=== PATIENT | male | born 1980 | race Caucasian/White ===

== ENCOUNTER 2017-09-04 07:38 | Emergency (ER) | payer BC ==
[2017-09-04 07:45] VITALS: BP 151/88; PULSE 72; RESP 16; TEMP 97; O2SAT 100
--- NOTE | 2017-09-04 08:20 | ED PDOC ---
HPI: Eye Injury/Pain Time Seen by Provider: 09/04/17 07:43 Chief Complaint (Nursing): Eye Problem Chief Complaint (Provider): Eye pain History Per: Patient History/Exam Limitations: no limitations Onset/Duration Of Symptoms: Days (yesterday) Current Symptoms Are (Timing): Still Present Additional Complaint(s): Pt. baby poked his right eye. Has had pain to the right eye since. Able to see with no issues but pain. No numbness, tingles, facial pain. No headaches, neck pain. No cough. No fever. Past Medical History Reviewed: Historical Data, Nursing Documentation, Vital Signs Vital Signs: Last Vital Signs Temp 97.0 F L 09/04/17 07:41 Pulse 72 09/04/17 07:41 Resp 16 09/04/17 07:41 BP 151/88 H 09/04/17 07:41 Pulse Ox 100 09/04/17 07:41 - Medical History PMH: No Chronic Diseases - Surgical History Surgical History: No Surg Hx - Family History Family History: States: Unknown Family Hx - Living Arrangements Living Arrangements: With Family - Home Medications Home Medications: Ambulatory Orders Medication Instructions Recorded Ibuprofen [Motrin] 600 mg PO TID 7 Days tab 09/04/17 Polymyxin/Trimethoprim Sulfate 2 drop RIGHTEYE Q6H 7 Days bottle 09/04/17 [Polytrim Ophth Soln] - Allergies Allergies/Adverse Reactions: Allergies Allergy/AdvReac Type Severity Reaction Status Date / Time No Known Allergies Allergy Verified 09/04/17 07:41 Review of Systems Constitutional: Negative for: Fever, Weakness Eyes: Positive for: Pain. Negative for: Vision Change, Conjunctivae Inflammation, Eyelid Inflammation ENT: Negative for: Nose Pain, Nose Discharge, Nose Congestion, Mouth Pain Respiratory: Negative for: Cough, Shortness of Breath Musculoskeletal: Negative for: Neck Pain, Shoulder Pain, Arm Pain, Back Pain Skin: Negative for: Rash Neurological: Negative for: Weakness, Numbness, Headache Physical Exam - Reviewed Nursing Documentation Reviewed: Yes Vital Signs Reviewed: Yes - Physical Exam Appears: Positive for: Non-toxic, No Acute Distress Head Exam: Positive for: ATRAUMATIC, NORMAL INSPECTION, NORMOCEPHALIC Skin: Positive for: Normal Color, Warm, DRY Eye Exam: Positive for: EOMI, PERRL, Conjunctival injection, Other (R eye with conjunctival injection; no foreign body under upper or lower eye lid; fluorescein uptake central eye in patch pattern). Negative for: Periorbital swelling, Periorbital tenderness ENT: Positive for: Normal ENT Inspection. Negative for: Nasal Congestion Neck: Positive for: Normal, Painless ROM Cardiovascular/Chest: Positive for: Regular Rate, Rhythm Respiratory: Positive for: CNT, Normal Breath Sounds Back: Positive for: Normal Inspection Neurologic/Psych: Positive for: Alert, scientific photographer II-XII, Oriented. Negative for: Motor/Sensory Deficits - ECG O2 Sat by Pulse Oximetry: 100 Pulse Ox Interpretation: Normal - Progress ED Course And Treament: 823: Stable. AAOx3. Pain free. Vision poor in R per eye exam as pt. has injury and teary eye. Fu with eye doctor. Disposition - Clinical Impression Clinical Impression: Corneal abrasion - Patient ED Disposition Is Patient to be Admitted: No Counseled Patient/Family Regarding: Diagnosis, Need For Followup, Rx Given - Disposition Referrals: Clifton Toledo MD [Staff Provider] - 09/05/17 [facility] [Outside] - 09/05/17 Disposition: Routine/Home Disposition Time: 08:25 Condition: STABLE Additional Instructions: Return if not better in 3 days. Prescriptions: Ibuprofen [Motrin] 600 mg PO TID 7 Days tab Polymyxin/Trimethoprim Sulfate [Polytrim Ophth Soln] 2 drop RIGHTEYE Q6H 7 Days bottle Instructions: Corneal Abrasion (ED) Forms: [facility] (Indonesian), [facility] ED School/Work Excuse
== END 2017-09-04 08:45 | disposition home or self-care (01) ==
LOC: H.ER 07:38
DX: S05.01XA Injury of conjunctiva and corneal abrasion without foreign body, right eye, initial encounter (principal); W50.0XXA Accidental hit or strike by another person, initial encounter; Z23 Encounter for immunization

== ENCOUNTER 2018-01-22 16:58 | Emergency (ER) | payer BC ==
[2018-01-22 17:03] VITALS: BP 140/84; PULSE 73; RESP 20; TEMP 98.2; O2SAT 100
--- NOTE | 2018-01-22 17:22 | ED PDOC ---
HPI: Male Pain Time Seen by Provider: 01/22/18 17:15 Chief Complaint (Nursing): Male Genitourinary History Per: Patient Onset/Duration Of Symptoms: Hrs (2) Current Symptoms Are (Timing): Still Present Severity: Moderate Pain Scale Rating Of: 5 Quality Of Discomfort: Aching Associated Symptoms: denies: Urinary Symptoms Additional Complaint(s): Kicked in right testicle at 3 PM today, developed pain radiating to right flank 20 min later. Denies dysuria or hematuria. No NV Past Medical History Vital Signs: Last Vital Signs Temp 98.2 F 01/22/18 17:00 Pulse 73 01/22/18 17:00 Resp 20 01/22/18 17:00 BP 140/84 01/22/18 17:00 Pulse Ox 100 01/22/18 17:00 - Medical History PMH: No Chronic Diseases - Family History Family History: States: Unknown Family Hx - Home Medications Home Medications: Ambulatory Orders Medication Instructions Recorded Ibuprofen [Motrin] 600 mg PO TID 7 Days tab 09/04/17 Polymyxin/Trimethoprim Sulfate 2 drop RIGHTEYE Q6H 7 Days bottle 09/04/17 [Polytrim Ophth Soln] traMADol [Ultram] 50 mg PO Q8 #10 tab 01/22/18 - Allergies Allergies/Adverse Reactions: Allergies Allergy/AdvReac Type Severity Reaction Status Date / Time No Known Allergies Allergy Verified 01/22/18 16:59 Review of Systems Constitutional: Negative for: Fever Gastrointestinal: Positive for: Abdominal Pain Genitourinary Male: Positive for: Other (testicular pain). Negative for: Hematuria Physical Exam - Physical Exam Appears: Positive for: Non-toxic, Uncomfortable Skin: Positive for: Normal Color, Warm, DRY Gastrointestinal/Abdominal: Positive for: Bowel Sounds, Soft. Negative for: Tenderness Male Genital Exam: Positive for: normal genitalia, testicular tenderness (R). Negative for: bleeding, hernia mass Back: Negative for: L CVA Tenderness, R CVA Tenderness - ECG O2 Sat by Pulse Oximetry: 100 Disposition - Clinical Impression Clinical Impression: Contusion of testicle - Patient ED Disposition Is Patient to be Admitted: No Counseled Patient/Family Regarding: Studies Performed, Diagnosis, Need For Followup, Rx Given - Disposition Referrals: Cameron Ni MD [Medical Doctor] - Disposition: Routine/Home Disposition Time: 19:28 Condition: FAIR Prescriptions: traMADol [Ultram] 50 mg PO Q8 #10 tab Instructions: Contusion (DC) Forms: [facility] (Sami) Print Language: BURUNDIAN
--- NOTE | 2018-01-22 18:13 | US ---
HISTORY: trauma TECHNIQUE: Realtime sonography through the scrotum with color and doppler flow. COMPARISON: None Available. FINDINGS: RIGHT TESTICLE: Measures 2.1 x 3 x 4.2 cm. Normal echotexture and flow. RIGHT EPIDIDYMIS: Epididymal head measures 1.1 x 1.3 cm. Grossly unremarkable appearance with normal flow. LEFT TESTICLE: Measures 1.8 x 3.1 x 4.1 cm. Normal echotexture and flow. LEFT EPIDIDYMIS: Epididymal head measures 0.9 x 1.2 cm. Grossly unremarkable appearance with normal flow. HYDROCELE: Small and bilateral. VARICOCELE: None. OTHER FINDINGS: Debris laden Cyst interposed between the posterior wall of the scrotum and PA and right testicle measuring 3 x 5 x 6 mm. Focal calcification adjacent to the left testicle measuring 2.4 x 1.8 mm. Scrotal edema bilaterally left greater than right. IMPRESSION: Negative study for epididymitis, orchitis or torsion. Additional benign and/or incidental findings described above.
[2018-01-22 20:12] LABS: SQUAMOUS EPITHIAL < 1 /hpf (0-5); URINE BILIRUBIN NEGATIVE (NEGATIVE); URINE BLOOD LARGE (NEGATIVE); URINE CLARITY CLOUDY (Clear); URINE COLOR AMBER (YELLOW); URINE GLUCOSE (UA) NEG (Normal); URINE HYALINE CAST 0-2 /hpf (0-2); URINE LEUKOCYTE ESTERASE NEG Leu/uL (Negative); URINE PROTEIN 100 mg/dL (NEGATIVE)
== END 2018-01-22 20:15 | disposition home or self-care (01) ==
LOC: H.ER 16:58
DX: S30.22XA Contusion of scrotum and testes, initial encounter (principal); Y04.0XXA Assault by unarmed brawl or fight, initial encounter; Y92.89 Other specified places as the place of occurrence of the external cause
CPT/HCPCS: 81003; 93975; 96372; 99283; J1885

== ENCOUNTER 2018-01-22 20:41 | Emergency (ER) | payer BC ==
[2018-01-22 20:45] VITALS: BP 162/81; PULSE 63; RESP 18; TEMP 98; O2SAT 99
[2018-01-22] MEDS ORDERED: Sodium Chloride 0.9% 1,000 ML IV STA (20:51)
--- NOTE | 2018-01-22 20:53 | ED PDOC ---
HPI: Male Pain Time Seen by Provider: 01/22/18 20:49 Chief Complaint (Nursing): Male Genitourinary History Per: Patient Current Symptoms Are (Timing): Still Present Severity: Moderate Quality Of Discomfort: Aching Associated Symptoms: denies: Nausea Additional Complaint(s): Seen earlier with traumatic pain to testicle. Return now with right flank pain. No NVD. No dysuria Past Medical History Vital Signs: Last Vital Signs Temp 98.0 F 01/22/18 20:43 Pulse 63 01/22/18 20:43 Resp 18 01/22/18 20:43 BP 162/81 H 01/22/18 20:43 Pulse Ox 99 01/22/18 20:43 - Medical History PMH: No Chronic Diseases - Family History Family History: States: Unknown Family Hx - Home Medications Home Medications: Ambulatory Orders Medication Instructions Recorded Ibuprofen [Motrin] 600 mg PO TID 7 Days tab 09/04/17 Polymyxin/Trimethoprim Sulfate 2 drop RIGHTEYE Q6H 7 Days bottle 09/04/17 [Polytrim Ophth Soln] Sulfamethoxazole/Trimethoprim 1 tab PO BID #20 tab 01/22/18 [Bactrim DS 800 mg-160 mg] Sulfamethoxazole/Trimethoprim 1 tab PO BID #20 tab 01/22/18 [Bactrim DS 800 mg-160 mg] Tamsulosin [Flomax] 0.4 mg PO DAILY #5 cap 01/22/18 traMADol [Ultram] 50 mg PO Q8 #10 tab 01/22/18 traMADol [Ultram] 50 mg PO Q8 #10 tab 01/22/18 - Allergies Allergies/Adverse Reactions: Allergies Allergy/AdvReac Type Severity Reaction Status Date / Time No Known Allergies Allergy Verified 01/22/18 20:43 Review of Systems Constitutional: Negative for: Fever Gastrointestinal: Positive for: Abdominal Pain. Negative for: Nausea, Vomiting Genitourinary Male: Negative for: Dysuria, Frequency Physical Exam - Physical Exam Appears: Positive for: Non-toxic, No Acute Distress Skin: Positive for: Normal Color, Warm, DRY Gastrointestinal/Abdominal: Positive for: Bowel Sounds, Soft. Negative for: Tenderness Back: Negative for: L CVA Tenderness, R CVA Tenderness - ECG O2 Sat by Pulse Oximetry: 99 - Progress Re-evaluation Time: 22:00 Condition: Improved Disposition - Clinical Impression Clinical Impression: Kidney stone - Patient ED Disposition Is Patient to be Admitted: No Counseled Patient/Family Regarding: Studies Performed, Diagnosis, Need For Followup, Rx Given - Disposition Referrals: Cameron Ni MD [Medical Doctor] - Disposition: Routine/Home Disposition Time: 22:01 Condition: FAIR Prescriptions: Sulfamethoxazole/Trimethoprim [Bactrim DS 800 mg-160 mg] 1 tab PO BID #20 tab Tamsulosin [Flomax] 0.4 mg PO DAILY #5 cap traMADol [Ultram] 50 mg PO Q8 #10 tab Instructions: Kidney Stones in Adults Forms: [facility] (Palauan) Print Language: ALBANIAN
--- NOTE | 2018-01-23 10:55 | CT ---
PROCEDURE: CT Abdomen and Pelvis with Oral contrast. HISTORY: Rule out kidney stone COMPARISON: None. TECHNIQUE: Contiguous axial images of the abdomen and pelvis. Additional 2D sagittal and coronal reformats generated. Radiation dose: Total exam DLP = 475.54 mGy-cm. This CT exam was performed using one or more of the following dose reduction techniques: Automated exposure control, adjustment of the mA and/or kV according to patient size, and/or use of iterative reconstruction technique. FINDINGS: LOWER THORAX: Heart size is upper limits of normal. No significant pericardial effusion. There is a small hiatal hernia. Lung bases are clear. Some minor scarring seen in the lingular and middle lobe regions. LIVER: Unremarkable. No gross lesion or ductal dilatation. GALLBLADDER AND BILE DUCTS: Unremarkable. PANCREAS: Unremarkable. No mass. No ductal dilatation. SPLEEN: Unremarkable. No splenomegaly. ADRENALS: Unremarkable. KIDNEYS AND URETERS: Right-sided hydronephrosis secondary to a 5 mm calculus right proximal/mid ureter region. Punctate calcification also seen in the midpole right kidney disease the the the BLADDER: Grossly unremarkable. REPRODUCTIVE: Unremarkable. APPENDIX: Normal-appearing appendix BOWEL: Unremarkable. No obstruction. No gross mural thickening. PERITONEUM: Unremarkable. No fluid collection. No free air. LYMPH NODES: There are multiple small nonspecific mesenteric lymph nodes of uncertain etiology though could be reactive. VASCULATURE: Unremarkable. No aortic aneurysm. BONES: No fracture or destructive lesion. OTHER FINDINGS: None. IMPRESSION: There is a 5 mm obstructing calculus the proximal/ mid right ureter with mild right-sided hydronephrosis. Punctate calcification upper/ midpole right kidney. Scattered multiple small nonspecific mesenteric lymph nodes are present possibly reactive. Rule out mesenteric adenitis.
== END 2018-01-22 22:13 | disposition home or self-care (01) ==
LOC: H.ER 20:41
DX: N13.2 Hydronephrosis with renal and ureteral calculous obstruction (principal)
CPT/HCPCS: 74176; 96374; 99284; J2270; J7030

== ENCOUNTER 2018-09-22 05:23 | Emergency (ER) | payer SELFPAY ==
[2018-09-22 05:46] VITALS: BMI 25.0
[2018-09-22] MEDS ORDERED: Sodium Chloride 0.9% 1,000 ML IV STA (05:47)
[2018-09-22 06:15] LABS: BASO # 0.1 K/uL (0.0-0.2); BASO % 0.6 % (0.0-2.0); EOS % 0.2 % (0.0-4.0); HEMOGLOBIN 15.9 g/dL (12.0-18.0); LYMPH # 1.9 K/uL (1.0-4.3); LYMPH % 11.8 % (20.0-40.0); MEAN CELL VOLUME 96.5 fl (80.0-94.0); MEAN CORPUSCULAR HEMOGLOBIN 32.8 pg (27.0-31.0); MEAN PLATELET VOLUME 9.1 fl (7.2-11.7); MONO # 0.9 K/uL (0.0-0.8); MONO % 5.9 % (0.0-10.0); NEUT % 81.5 % (50.0-75.0); RBC 4.84 Mil/uL (4.40-5.90); RED CELL DISTRIBUTION WIDTH 13.6 % (11.5-14.5); WHITE BLOOD COUNT 15.9 K/uL (4.8-10.8)
--- NOTE | 2018-09-22 06:15 | ED PDOC ---
HPI: Abdomen Time Seen by Provider: 09/22/18 05:30 Chief Complaint (Nursing): Abdominal Pain Chief Complaint (Provider): Abdominal Pain History Per: Patient History/Exam Limitations: no limitations Quality Of Discomfort: "Pain" Associated Symptoms: Nausea, Vomiting Additional Complaint(s): 38 year old male with no significant medical history presents to the ED for eval uation of acute left sided abdominal pain radiating to left testicle and flank. Patient also developed nausea and vomiting about 1 hour prior to arrival. He denies fever, diarrhea and other complaints. PMD: none provided Past Medical History Reviewed: Historical Data, Nursing Documentation, Vital Signs Vital Signs: Last Vital Signs Temp 97.7 F 09/22/18 05:42 Pulse 67 09/22/18 05:42 Resp 16 09/22/18 05:42 BP 153/98 H 09/22/18 05:42 Pulse Ox 100 09/22/18 05:42 - Medical History PMH: No Chronic Diseases - Surgical History Surgical History: No Surg Hx - Family History Family History: States: Unknown Family Hx - Home Medications Home Medications: Ambulatory Orders Medication Instructions Recorded Famotidine [Pepcid] 20 mg PO BID #28 tab 09/22/18 - Allergies Allergies/Adverse Reactions: Allergies Allergy/AdvReac Type Severity Reaction Status Date / Time No Known Allergies Allergy Verified 01/22/18 20:43 Review of Systems ROS Statement: Except As Marked, All Systems Reviewed And Found Negative Constitutional: Negative for: Fever, Chills Cardiovascular: Negative for: Chest Pain Gastrointestinal: Positive for: Abdominal Pain, Diarrhea Physical Exam - Physical Exam Appears: Positive for: Uncomfortable Head Exam: Positive for: ATRAUMATIC, NORMAL INSPECTION, NORMOCEPHALIC Skin: Positive for: Normal Color, Warm, Dry Eye Exam: Positive for: EOMI, Normal appearance, PERRL Neck: Positive for: Normal, Painless ROM, Supple Cardiovascular/Chest: Positive for: Regular Rate, Rhythm. Negative for: Murmur Respiratory: Positive for: Normal Breath Sounds. Negative for: Respiratory Distress Gastrointestinal/Abdominal: Positive for: Normal Exam, Soft. Negative for: Tend erness Back: Positive for: L CVA Tenderness. Negative for: R CVA Tenderness Extremity: Positive for: Normal ROM. Negative for: Deformity Neurologic/Psych: Positive for: Alert, Oriented. Negative for: Motor/Sensory Deficits - Laboratory Results Result Diagrams: 09/22/18 06:00 09/22/18 06:00 - ECG O2 Sat by Pulse Oximetry: 100 (RA) Pulse Ox Interpretation: Normal Medical Decision Making Medical Decision Makin:47 Impression: 38 year old male with abdominal pain Initial Plan: --CT Abd & pelvis --CMP --CBC --Lipase --Urine dip --Morphine 4 mg IV --NS IV --Pepcid 20 mg IVP --Toradol 30 mg IM --Zofran 4 mg IV --UA 07:00 Patient will be signed out to Dr. Pyle pending full ER workup and disposition. --- Scribe Attestation: Documented by Jill Orr acting as a scribe for Manuel Carrillo MD Provider Scribe Attestation: All medical record entries made by the Scribe were at my direction and personally dictated by me. I have reviewed the chart and agree that the record accurately reflects my personal performance of the history, physical exam, medical decision making, and the department course for this patient. I have also personally directed, reviewed, and agree with the discharge instructions and disposition. Disposition - Clinical Impression Clinical Impression: Gastritis - Patient ED Disposition Is Patient to be Admitted: Transfer of Care - Disposition Referrals: [email or web address] [Outside] [facility] [Outside] [facility] [Outside] Disposition: Transfer of Care Disposition Time: 07:00 Condition: FAIR Prescriptions: Famotidine [Pepcid] 20 mg PO BID #28 tab Instructions: Gastritis Forms: [email or web address] (Moldovan), [facility] ED School/Work Excuse Print Language: TURKMEN Patient Signed Over To: Elly Pyle
[2018-09-22] MEDS ORDERED: Morphine 5 MG/ML SYRINGE IVP ONE (06:19)
[2018-09-22] MEDS ORDERED: Morphine 4 MG/ML VIAL ONE (06:22)
[2018-09-22 06:23] LABS: ALB/GLOB RATIO 1.4 (1.0-2.1); ALBUMIN 4.7 g/dL (3.5-5.0); ALT/SGPT 26 U/L (21-72); AST/SGOT 27 U/L (17-59); BLOOD UREA NITROGEN 14 mg/dl (9-20); CALCIUM 9.9 mg/dL (8.4-10.2); GFR NON-AFRICAN AMERICAN > 60; LIPASE 319 U/L (23-300)
--- NOTE | 2018-09-22 07:25 | ED PDOC ---
- Laboratory Results Result Diagrams: 09/22/18 06:00 09/22/18 06:00 Lab Results: Total Bilirubin 0.6 mg/dl (0.2-1.3) 09/22/18 06:00 AST 27 U/L (17-59) 09/22/18 06:00 ALT 26 U/L (21-72) 09/22/18 06:00 Alkaline Phosphatase 79 U/L (38-126) 09/22/18 06:00 Total Protein 8.1 G/DL (6.3-8.2) 09/22/18 06:00 Albumin 4.7 g/dL (3.5-5.0) 09/22/18 06:00 Globulin 3.4 gm/dL (2.2-3.9) 09/22/18 06:00 Albumin/Globulin Ratio 1.4 (1.0-2.1) 09/22/18 06:00 Lipase 319 U/L (23-300) H 09/22/18 06:00 - ECG O2 Sat by Pulse Oximetry: 100 (RA) Pulse Ox Interpretation: Normal Medical Decision Making Medical Decision Makin:[address] Pyle from Dr. Carrillo pending CT scan, ED workup and disposition. 07:30 CT SCAN OF THE ABDOMEN AND PELVIS WITHOUT ORAL OR IV CONTRAST. CLINICAL INDICATION: Left flank pain. TECHNIQUE: Axial and reformatted sagittal and coronal images of the abdomen pelvis obtained without IV contrast administration. COMPARISON: 01/22/2018. FINDINGS: The visualized lung bases are unremarkable. Normal unenhanced liver. Normal gallbladder and extrahepatic biliary system. Normal unenhanced spleen. Normal pancreas. Normal bilateral adrenal glands. Normal size of the right kidney. There is no right renal mass. There are no right renal calculi. There is no right hydronephrosis. Normal visualized right ureter. Normal size of the left kidney. There is no left renal mass. 3 mm left renal nonobstructing stone. There is no left hydronephrosis. Normal visualized left ureter. Normal visualized stomach. Normal small intestine. Uncomplicated diverticulosis of the colon. Mild amount of fecal residue in the large bowels. The appendix is visualized and appears normal. There is no demonstrated peritoneal fluid. Normal abdominal aorta. Normal inferior vena cava. Normal retroperitoneum. Normal urinary bladder. There is no pelvic mass lesion or lymphadenopathy. There is no pelvic fluid. Normal abdominal wall. Normal osseous structures. IMPRESSION: Nonobstructing left nephrolithiasis. Mild amount of fecal residue in the large bowels -- Scribe Attestation: Documented by Mere Roger acting as a scribe for Elly Pyle MD Provider Scribe Attestation: All medical record entries made by the Scribe were at my direction and personally dictated by me. I have reviewed the chart and agree that the record accurately reflects my personal performance of the history, physical exam, medical decision making, and the department course for this patient. I have also personally directed, reviewed, and agree with the discharge instructions and disposition. 8.15 - patient is feeling better. Labs and CT reviewed. No acute findings except for nonspecific leukocytosis. Patient points to pain in the epigastric area where there is also significant tenderness on exam. The rest of the abdominal exam is normal. There is no evidence of CVAT even accounting for pain meds received earlier. Patient had just had 2 beers prior to onset of pain while watching TV. Disposition Doctor Will See Patient In The: Office Counseled Patient/Family Regarding: Diagnosis, Need For Followup, Rx Given - Clinical Impression Clinical Impression: Gastritis - POA Present On Arrival: None - Disposition Referrals: [facility] [Outside] [facility] [Outside] [facility] [Outside] Disposition: Routine/Home Disposition Time: 08:36 Condition: IMPROVED Prescriptions: Famotidine [Pepcid] 20 mg PO BID #28 tab Instructions: Gastritis Forms: [facility] (Niuean), [facility] ED School/Work Excuse Print Language: YI
[2018-09-22 07:40] VITALS: PULSE 78
[2018-09-22 07:52] LABS: URINE BILIRUBIN NEGATIVE (NEGATIVE); URINE BLOOD NEGATIVE (NEGATIVE); URINE CLARITY SLIGHTY-CLOUDY (Clear); URINE COLOR YELLOW (YELLOW); URINE GLUCOSE (UA) NEG (NEGATIVE); URINE LEUKOCYTE ESTERASE NEG Leu/uL (Negative); URINE PROTEIN NEGATIVE (NEGATIVE); URINE UROBILINOGEN 0.2-1.0 mg/dL (0.2-1.0)
[2018-09-22 08:46] VITALS: BP 129/78; RESP 20; TEMP 97.5
--- NOTE | 2018-09-22 09:36 | CT ---
Date of service: 09/22/2018 PROCEDURE: CT Abdomen and Pelvis without intravenous contrast HISTORY: renal colic COMPARISON: 01/22/2018. CT abdomen and pelvis. Summary of findings on the comparison examination: There is a 5 mm obstructing calculus the proximal/ mid right ureter with mild right-sided hydronephrosis. Punctate calcification upper/ midpole right kidney. TECHNIQUE: Unenhanced. Neither IV nor oral contrast administered Radiation dose: Total exam DLP = 383.33 mGy-cm. This CT exam was performed using one or more of the following dose reduction techniques: Automated exposure control, adjustment of the mA and/or kV according to patient size, and/or use of iterative reconstruction technique. FINDINGS: LOWER THORAX: Unremarkable. LIVER: Unremarkable. No gross lesion or ductal dilatation. GALLBLADDER AND BILE DUCTS: Unremarkable. PANCREAS: Unremarkable. No gross lesion or ductal dilatation. SPLEEN: Unremarkable. ADRENALS: Unremarkable. No mass. KIDNEYS AND URETERS: Right kidney: Unremarkable. No hydronephrosis. No solid mass. Left kidney: Tiny less than 2 mm nonobstructing calculus lower pole left kidney. Similar finding identified on the prior study. VASCULATURE: Unremarkable. No aortic aneurysm. No atherosclerotic calcification or mural plaque present. BOWEL: Constipation without fecal impaction or obstruction. APPENDIX: A normal appendix is visualized in it's entirety. PERITONEUM: Unremarkable. No free fluid. No free air. LYMPH NODES: Unremarkable. No enlarged lymph nodes. BLADDER: Unremarkable. REPRODUCTIVE: Unremarkable. BONES: No acute fracture. OTHER FINDINGS: None. IMPRESSION: No evidence of obstructive uropathy. Resolution of right hydro nephrosis hydroureter related to previously identified right ureteral calculus. Stable, less than 2 mm calculus nonobstructing lower pole left kidney. Additional benign and/or incidental findings described above. Concordant results (preliminary interpretation) provided by [place]. Procedure Completed: 06:10. Preliminary Report: Interpreted and electronically signed: 06:37. Final Interpretation: 09:33.
[2018-09-23 03:46] VITALS: O2SAT 100
== END 2018-09-22 08:47 | disposition home or self-care (01) ==
LOC: H.ER 05:23
DX: K29.70 Gastritis, unspecified, without bleeding (principal); Z87.442 Personal history of urinary calculi
CPT/HCPCS: 74176; 80053; 81003; 83690; 85025; 96374; 99284; J1885; J2270; J2405; J7030

== ENCOUNTER 2018-11-28 16:23 | Inpatient (IN) | payer MEDICAID ==
[2018-11-28 16:24] VITALS: BMI 25.0
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
[2018-11-28 18:18] LABS: BASO # 0.1 K/uL (0.0-0.2); BASO % 0.7 % (0.0-2.0); EOS % 0.3 % (0.0-4.0); HEMOGLOBIN 15.3 g/dL (12.0-18.0); LYMPH # 2.7 K/uL (1.0-4.3); LYMPH % 18.4 % (20.0-40.0); MEAN CELL VOLUME 95.5 fl (80.0-94.0); MEAN CORPUSCULAR HEMOGLOBIN 32.7 pg (27.0-31.0); MEAN CORPUSCULAR HGB CONC 34.2 g/dL (33.0-37.0); MEAN PLATELET VOLUME 8.7 fl (7.2-11.7); MONO % 6.4 % (0.0-10.0); NEUT # 11.1 K/uL (1.8-7.0); NEUT % 74.2 % (50.0-75.0); NRBC % 0.1 % (0.0-0.0); RBC 4.7 Mil/uL (4.40-5.90); RED CELL DISTRIBUTION WIDTH 13.2 % (11.5-14.5); WHITE BLOOD COUNT 14.9 K/uL (4.8-10.8)
[2018-11-28 18:29] LABS: SQUAMOUS EPITHIAL < 1 /hpf (0-5); URINE BACTERIA RARE (<OCC); URINE BILIRUBIN SMALL (NEGATIVE); URINE BLOOD NEGATIVE (NEGATIVE); URINE CLARITY SLIGHTY-CLOUDY (Clear); URINE COLOR AMBER (YELLOW); URINE GLUCOSE (UA) NEG (NEGATIVE); URINE LEUKOCYTE ESTERASE NEG Leu/uL (Negative); URINE PROTEIN 100 mg/dL (NEGATIVE); URINE UROBILINOGEN 0.2-1.0 mg/dL (0.2-1.0)
[2018-11-28 18:35] LABS: ALB/GLOB RATIO 1.5 (1.0-2.1); ALBUMIN 4.6 g/dL (3.5-5.0); ALT/SGPT 23 U/L (21-72); AST/SGOT 26 U/L (17-59); BLOOD UREA NITROGEN 21 mg/dl (9-20); CALCIUM 9.7 mg/dL (8.4-10.2); GFR NON-AFRICAN AMERICAN > 60
[2018-11-28 18:36] LABS: ACETAMINOPHEN < 10.0 ug/ml (10.0-30.0); SALICYLATE < 1.0 mg/dl
[2018-11-28 18:53] LABS: BARBITURATES, UR NEGATIVE (NEGATIVE)
[2018-11-28 18:55] LABS: BENZODIAZEPINES, UR NEGATIVE (NEGATIVE); OPIATES, UR NEGATIVE (NEGATIVE); PHENCYCLIDINE, UR NEGATIVE (NEGATIVE)
[2018-11-28] MEDS ORDERED: Potassium Chloride 20 mEq ER Tab PO STA (21:10)
[2018-11-28] MEDS ORDERED: Potassium Chloride 20 mEq ER Tab PO ONE (21:42)
[2018-11-28 21:46] VITALS: O2SAT 98
--- NOTE | 2018-11-28 21:55 | RAD ---
Date of service: 11/28/2018 HISTORY: psych eval COMPARISON: No prior. TECHNIQUE: Chest PA and lateral views FINDINGS: LUNGS: No active pulmonary disease. PLEURA: No significant pleural effusion identified. No pneumothorax apparent. CARDIOVASCULAR: No aortic atherosclerotic calcification present. Normal cardiac size. No pulmonary vascular congestion. OSSEOUS STRUCTURES: No significant abnormalities. VISUALIZED UPPER ABDOMEN: Normal. OTHER FINDINGS: None. IMPRESSION: No active disease.
[2018-11-28] MEDS ORDERED: DiphenhydrAMINE 50 mg/ml Inj IM PRN (23:32)
[2018-11-28] MEDS ORDERED: Alum-Mag Hydrox-Simethicone Susp (30 mL) PO PRN (23:32)
[2018-11-28] MEDS ORDERED: Magnesium Hydroxide Susp 30 ml UD PO PRN (23:32)
--- NOTE | 2018-11-29 00:16 | PCM.BM ---
<Thais Delong Lion - Last Filed: 11/29/18 00:11> Treatment Plan Problems - Problems identified on initial assessmt Self Harm Date Initiated: 11/29/18 Time Initiated: 00:11 Assessment reference: NA Status: Active Suicidal Ideation Date Initiated: 11/29/18 Time Initiated: 00:12 Assessment reference: NA Status: Active Hopelessness/Helplessness Date Initiated: 11/29/18 Time Initiated: 00:12 Assessment reference: NA Status: Active Feelings of Worthlessness Date Initiated: 11/29/18 Time Initiated: 00:13 Assessment reference: NA Status: Active Altered Sleep Patterns Date Initiated: 11/29/18 Time Initiated: 00:14 Assessment reference: NA Status: Active Ineffective Coping Date Initiated: 11/29/18 Time Initiated: 00:14 Assessment reference: NA Status: Active Treatment assets and liabiliti Patient Assests: self-reliant, ADL independent, physically healthy, negotiates basic needs Patient Liabilities: relationship conflicts, substance abuse - Milieu Protocol Maintain good personal hygiene: daily Encourage regular showers, every shift Remind patient to perform daily oral care, every shift Assist patient to perform ADL's Maintain personal safety: every shift Educate patient to report safety concerns to staff, every shift Monitor environment for contraband/sharps Medication safety: Monitor for expected outcome, potential side effects: every shift, Assess barriers to learning: every shift, Assess readiness for medication education: every shift <José Miguel Buchanan - Last Filed: 11/29/18 15:38> Family Contact Family involvement: Famliy/SO not involved Family contact: Patient declines to allow family contact at present Family contact name: Pt refused. - Goals for Treatment Patient goals for treatment: Pt signed a 48 hour notice and would like to leave the unit. Pt denied that he required treatment or inpatient admission at this time. Pt to be screened by [facility] [place]. Discharge/Continuing Care - Education Needs Education Needs: Patient Medication, Patient Diagnosis/Disease Process, Patient Coping Skills, Patient Aftercare Safety Plan - Discharge Discharge Criteria: Tolerates medication w/o severe side effects, Free of Suicidal thoughts, Free of paranoid thoughts, Free of agitation, Normal sleep pattern, Ability to care for self, No longer exhibiting s/s of withdrawal, Reduction of target symptoms Discharge to:: Home - Treatment Team Participation Patient/Family/SO Statement: 11/29/18 15:40 Pt seen in team on 11/29/18. Pt refused to rescind his 48 hour notice. Pt lacks complete insight into his illness and reported that he only attempted suicide to manipulate his loved ones. Pt needs to leave the unit so he can make money. Pt denied SI/HI and AVT hallucinations. Pt's speech was pressured, rapid, tangential. Pt unable to retain information or form coherent ideas. Pt denied SI/HI and AVT hallucinations. Pt is oriented X4. Discussed with Family/SO: No Was Patient/Family/SO present at Treatment Team Meeting: Yes <Canelo Boothe - Last Filed: 12/02/18 09:56> - Diagnosis (1) Depression Status: Acute Interventions: 12/02/18 09:56 start antidepressant (2) Cannabis abuse Status: Acute Interventions: 12/02/18 09:56 motivational therapy
--- NOTE | 2018-11-29 07:57 | RAD ---
Date of service: 11/28/2018 PROCEDURE: Cervical Spine Radiographs. HISTORY: Pain. COMPARISON: None available. TECHNIQUE: 3 views obtained. FINDINGS: BONES: Mild straightening of the cervical curvature. No spondylolisthesis apparent as imaged. T1 is not completely captured in this exam limiting the evaluation. C7-T1 accordingly is not evaluated for potential spondylolisthesis. No fracture identified throughout the visualized cervical spine. DISC SPACES: Moderate spondylosis identified at C5-6 with remaining intervertebral disc spaces unremarkable as imaged. SOFT TISSUES: Normal. No prevertebral soft tissue swelling. OTHER FINDINGS: None. IMPRESSION: Limited evaluation inferior cervical spine with T1 not captured. Straightened curvature noted. Moderate C5-6 spondylosis. No fracture down to C7.
[2018-11-29 08:58] LABS: HEMOGLOBIN 15.1 g/dL (12.0-18.0); MEAN CELL VOLUME 96.7 fl (80.0-94.0); MEAN CORPUSCULAR HEMOGLOBIN 32.3 pg (27.0-31.0); MEAN CORPUSCULAR HGB CONC 33.4 g/dL (33.0-37.0); RBC 4.66 Mil/uL (4.40-5.90); RED CELL DISTRIBUTION WIDTH 13.6 % (11.5-14.5); WHITE BLOOD COUNT 14.7 K/uL (4.8-10.8)
--- NOTE | 2018-11-29 09:30 | CARD ---
APPROVED REPORT Date of service: 11/28/2018 EKG Measurement Heart [id number] <Conclusion> Normal sinus rhythm Normal ECG
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
[2018-11-29 13:03] LABS: BLOOD UREA NITROGEN 21 mg/dl (9-20); CALCIUM 9.3 mg/dL (8.4-10.2); GFR NON-AFRICAN AMERICAN > 60; HDL CHOLESTEROL 34 MG/DL (30-70)
[2018-11-29 13:14] LABS: LDL CHOLESTEROL 89 mg/dL (0-129)
[2018-11-29] MEDS: Divalproex 500 mg DR(BID formulation) PO SCH ×2 (15:25→19:40)
[2018-11-29] MEDS: Risperidone M tab 1 MG PO SCH (17:25)
[2018-11-30] MEDS: Risperidone M tab 1 MG PO SCH ×2 (09:14→17:45)
[2018-11-30] MEDS: Divalproex 500 mg DR(BID formulation) PO SCH ×2 (09:15→17:44)
--- NOTE | 2018-11-30 09:18 | PCM.PYCHPN ---
Psychiatric Progress Note - Psychiatric Progress Note Patient seen today, length of contact: pt seen and evaluated Patient Chief Complaint: pt has remained guarded and paranoid and still has no insight about this consecutive suicidal attempts and does not want to stay in the unit and has been screened for involuntary committment by [facility] [place] and accepted. Medication Change: No Medical Record Reviewed: Yes Mental Status Examination - Cognitive Function Orientation: Person, Place Memory: Intact Attention: Poor Concentration: Poor Association: WNL Fund of Knowledge: WNL - Mood Mood: Anxious - Formal Thought Process Formal Thought Process: Delusions, Paranoia, Circumstantial - Suicidal Ideation Suicidal Ideation: Yes - Homicidal Ideation Homicidal Ideation: No Goal/Treatment Plan - Goal/Treatment Plan Progress Toward Problem(s) and Goals/Treatment Plan: will continue to maintain pt on 1:1 observation and offer inpt treatment with meds and therapy and pt will be transferred to [facility] [place] when arranged,
[2018-11-30 18:05] VITALS: BP 145/91; PULSE 87
[2018-11-30 18:13] VITALS: RESP 18; TEMP 99
== END 2018-11-30 18:00 | disposition short-term general hospital (02) | DRG 751 ==
LOC: H.ER 16:23 → H.ERHOLD 21:17 → H.PSYCH 22:25
PROVIDERS: ADMIT Psychiatry & Neurology Psychiatry; ATTEND Psychiatry & Neurology Psychiatry
PROC: GZ51ZZZ Individual Psychotherapy, Behavioral (ICD-10-PCS; principal; 2018-11-28)
PROC: GZ56ZZZ Individual Psychotherapy, Supportive (ICD-10-PCS; 2018-11-28)
DX: F32.3 Major depressive disorder, single episode, severe with psychotic features (principal); R45.851 Suicidal ideations; S10.91XA Abrasion of unspecified part of neck, initial encounter; W19.XXXA Unspecified fall, initial encounter; E87.6 Hypokalemia; F12.10 Cannabis abuse, uncomplicated; F14.90 Cocaine use, unspecified, uncomplicated; F17.200 Nicotine dependence, unspecified, uncomplicated

== ENCOUNTER 2018-12-18 17:31 | Emergency (ER) | payer MEDICAID ==
[2018-12-18 17:32] VITALS: BMI 25.0
[2018-12-18 17:38] VITALS: BP 141/83; PULSE 68; RESP 14; TEMP 98.4; O2SAT 98
--- NOTE | 2018-12-18 18:21 | RAD ---
Date of service: 12/18/2018 PROCEDURE: Radiographs of the Right Shoulder HISTORY: Right upper extremity Pain. No history of recent/ related trauma provided. COMPARISON: No prior. TECHNIQUE: 3 views obtained. FINDINGS: BONES: Normal. No fracture. JOINTS: Normal. Glenohumeral and acromioclavicular joints preserved. No osteoarthritis. SOFT TISSUES: Normal. OTHER FINDINGS: None. IMPRESSION: Normal radiographs of the right shoulder.
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
== END 2018-12-18 18:59 | disposition home or self-care (01) ==
LOC: H.ER 17:31
DX: M25.511 Pain in right shoulder (principal)